=== PATIENT | male | born 1955 | race Caucasian/White ===

== ENCOUNTER → 2016-05-16 | Outpatient (CLI) | payer BC ==
[~2016-05-16] MED LIST: ATOR10TA88 PO; DOXY100C PO; LATA0.5S OPB; LOSA100T65 PO; NAPR220T40 PO; OXYC1TAB3 PO; PRED20TA PO
[2016-05-16 09:54] LABS: AST/SGOT 18 U/L (15-37); BLOOD UREA NITROGEN 16 mg/dl (7-18); BUN/CREATININE RATIO 17.2 (10-20); CALCIUM 8.7 mg/dl (8.5-10.1); CARBON DIOXIDE 24 mmol/L (21-32); CHLORIDE 106 mmol/L (98-107); CREATININE 0.93 mg/dl (0.60-1.40); GLUCOSE 96 mg/dl (70-99); POTASSIUM 4.2 mmol/L (3.5-5.1); SODIUM 139 mmol/L (136-145)
[2016-05-16 09:57] LABS: ALT/SGPT 40 U/L (12-78); CHOLESTEROL 155 mg/dl (0-200); CHOLESTEROL/HDL RATIO 3.1; HDL CHOLESTEROL 50 mg/dl; LDL CHOLESTEROL CALCULATED 85 mg/dl; TRIGLYCERIDES 100 mg/dl (0-150); VERY LOW DENSITY LIPOPROT CALC 20 mg/dl
== END | disposition home or self-care (01) ==
LOC: C.LAB1850 07:35
PROVIDERS: ATTEND Internal Medicine
DX: Z00.00 Encounter for general adult medical examination without abnormal findings (principal); E78.5 Hyperlipidemia, unspecified; I10 Essential (primary) hypertension; Z12.5 Encounter for screening for malignant neoplasm of prostate; E55.9 Vitamin D deficiency, unspecified

== ENCOUNTER 2016-08-17 11:20 | Emergency (ER) | payer BC ==
[~2016-08-17] VITALS: Ht 182.9 cm; Wt 112.0 kg
[2016-08-17 11:23] VITALS: TEMP 36.3; Ht 182.9 cm; Wt 112.0 kg
[2016-08-17] MEDS ORDERED: ATOR10TA82 PO (11:45)
[2016-08-17] MEDS ORDERED: LATA0.5S OPB (11:45)
[2016-08-17] MEDS ORDERED: LOSA100T65 PO (11:45)
[2016-08-17] MEDS ORDERED: NAPR220T40 PO (11:45)
--- NOTE | 2016-08-17 12:18 | EMERGENCY ROOM VISIT NOTE ---
History Report prepared by Misa: Rambo Williamson Under the Supervision of: Dr. Alf Cooper M.D. First contact with patient: 11:52 Chief Complaint: PAIN (GENERALIZED) Stated Complaint: ACHING JOINTS ALL OVER BODY History of Present Illness The patient is a 61 year old male who presents to the Emergency Room with complaints of persistent joint pain starting this morning. For the past few months, the patient has been having an ongoing inflammation in the right hip. He has intermittent pain radiation down the back of the right leg. He has been evaluated by his PCP and his chiropractor for the right hip issues. About a month ago, he had an x-ray of the right hip which showed age-related degeneration and arthritis. About a year ago, the patient had similar pain in the left hip which had resolved on its own. Recently, the left hip pain is starting to come back but it is not as severe as the pain in the right hip. He recently finished a tapering dose of steroids which had provided relief in the right hip pain. He woke up this morning with pain in all of the joints. He has worsening pain with transitioning from sitting to standing position and with movement of legs. He has been taking Aleve without relief. He reports a normal appetite and a normal fluid intake. He denies any recent tick bites, fevers, chills, headache, vision changes, chest pain, shortness of breath, urinary symptoms, diarrhea, weakness, rash, or any other complaints. He has a history of back issues but currently denies any back pain. He also has a history of Lyme 's disease but denies any similar symptoms today. He is a former smoker. Source of History: patient Onset: this morning Position: other (joints) Timing: other (persistent) Modifying Factors (Worsening): movement, other (transitioning from sitting to standing position) Modifying Factors (Relieving): other (Aleve without relief) Associated Symptoms: No fevers, No chills, No headache, No chest pain, No SOB, No diarrhea, No urinary symptoms, No weakness, No rash Review of Systems See HPI for pertinent positives & negatives. A total of 10 systems reviewed and were otherwise negative. Past Medical & Surgical Medical Problems: (1) Back pain (2) Lyme disease Surgical Problems: (1) H/O sinus surgery Family History FHx: cancer Hypertension Social History Smoking Status: Former Smoker Alcohol Use: occasionally Marital Status: Housing Status: lives with significant other Occupation Status: employed Current/Historical Medications Scheduled Atorvastatin (Lipitor), 10 MG PO QPM Doxycycline Hyclate (Vibramycin), 100 MG PO BID Latanoprost (Xalatan 0.005% Oph Sammie), 1 DROPS OPB HS Losartan Potassium (Cozaar), 100 MG PO DAILY Naproxen Sodium (Aleve), 440 MG PO Q12 Prednisone (Prednisone), 0 PO DAILY Scheduled PRN Oxycodone Immediate Rel Tab (Roxicodone Ir), 1-2 TAB PO Q4H PRN for Severe Pain Allergies Coded Allergies: No Known Allergies (Unverified , 08/17/16) Physical Exam Vital Signs Date Time Temp Pulse Resp B/P (MAP) Pulse Ox O2 Delivery O2 Flow Rate FiO2 08/17/16 13:30 77 20 129/78 98 Room Air 08/17/16 11:23 36.3 71 18 143/91 94 Room Air Physical Exam GENERAL: Patient is well appearing and in minimal distress. HEENT: No acute trauma, normocephalic atraumatic, mucous membranes moist, no nasal congestion, no scleral icterus. NECK: No stridor, no adenopathy, no meningismus, trachea is midline. LUNGS: No dyspnea. Clear to auscultation and equal bilaterally. No wheeze, no rhonchi. HEART: Regular rate and rhythm. No murmurs, rubs, gallops appreciated. ABDOMEN: Soft, nontender, bowel sounds positive, no masses appreciated, no peritonitis. BACK: No midline tenderness, no CVA tenderness EXTREMITIES: Normal motion all extremities, no cyanosis, no edema. NEUROLOGIC: Alert and oriented, no acute motor or sensory deficits, no focal weakness, cranial nerves grossly intact. SKIN: No rash, no jaundice, no diaphoresis. Medical Decision & Procedures Laboratory Results 08/17/16 12:15 Red Blood Count 4.51, Mean Corpuscular Volume 91.4, Mean Corpuscular Hemoglobin 30.4, Mean Corpuscular Hemoglobin Concent 33.3, Mean Platelet Volume 9.6, Neutrophils (%) (Auto) 77.4, Lymphocytes (%) (Auto) 7.5, Monocytes (%) (Auto) 13.9, Eosinophils (%) (Auto) 0.7, Basophils (%) (Auto) 0.1, Neutrophils # (Auto ) 11.06, Lymphocytes # (Auto) 1.07, Monocytes # (Auto) 1.99, Eosinophils # (Auto ) 0.10, Basophils # (Auto) 0.02 08/17/16 12:15 Test 08/17/16 12:15 White Blood Count 14.30 K/uL (4.8-10.8) Red Blood Count 4.51 M/uL (4.7-6.1) Hemoglobin 13.7 g/dL (14.0-18.0) Hematocrit 41.2 % (42-52) Mean Corpuscular Volume 91.4 fL (80-100) Mean Corpuscular Hemoglobin 30.4 pg (25-34) Mean Corpuscular Hemoglobin Concent 33.3 g/dl (32-36) Platelet Count 290 K/uL (130-400) Mean Platelet Volume 9.6 fL (7.4-10.4) Neutrophils (%) (Auto) 77.4 % Lymphocytes (%) (Auto) 7.5 % Monocytes (%) (Auto) 13.9 % Eosinophils (%) (Auto) 0.7 % Basophils (%) (Auto) 0.1 % Neutrophils # (Auto) 11.06 K/uL (1.4-6.5) Lymphocytes # (Auto) 1.07 K/uL (1.2-3.4) Monocytes # (Auto) 1.99 K/uL (0.11-0.59) Eosinophils # (Auto) 0.10 K/uL (0-0.5) Basophils # (Auto) 0.02 K/uL (0-0.2) RDW Standard Deviation 46.0 fL (36.4-46.3) RDW Coefficient of Variation 13.8 % (11.5-14.5) Immature Granulocyte % (Auto) 0.4 % Immature Granulocyte # (Auto) 0.06 K/uL (0.00-0.02) Erythrocyte Sedimentation Rate 46 mm/hr (0-14) Anion Gap 8.0 mmol/L (3-11) Est Creatinine Clear Calc Drug Dose 141.0 ml/min Estimated GFR () 117.5 Estimated GFR (Non- 101.4 BUN/Creatinine Ratio 21.9 (10-20) Calcium Level 8.1 mg/dl (8.5-10.1) C-Reactive Protein 7.49 mg/dl (0-0.29) Lyme Disease IgG Antibody POS (NEG) Laboratory results as reviewed by me. Medications Administered Medications (Trade) Dose Ordered Sig/Dionne Route Start Time Stop Time Status Last Admin Dose Admin Ketorolac Tromethamine (Toradol Inj) 60 mg NOW STAT IM 08/17/16 12:54 08/17/16 12:55 DC 08/17/16 13:04 60 MG Oxycodone HCl (Roxicodone Immediate Rel Tab) 5 mg NOW STAT PO 08/17/16 13:48 08/17/16 13:49 DC 08/17/16 14:02 5 MG Prednisone (PredniSONE TAB) 60 mg NOW STAT PO 08/17/16 13:48 08/17/16 13:49 DC 08/17/16 14:02 60 MG Doxycycline Hyclate (Vibramycin Cap) 100 mg ONE ONCE PO 08/17/16 14:00 08/17/16 14:02 DC 08/17/16 14:02 100 MG ED Course 1152: The patient was evaluated in room C03. A complete history and physical exam was performed. 1254: Toradol Inj 60 mg IM 1305: I reevaluated the patient. 1348: Prednisone 60 mg PO, Oxycodone HCl 5 mg PO 1400: Vibramycin Cap 100 mg PO. Reevaluated the patient who is resting comfortably. Discussed results and discharge instructions: He verbalized understanding and agreement. The patient is ready for discharge. Medical Decision Differential diagnosis includes but is not limited to polyarthralgia, tick borne illness, sepsis, septic joint, vasculitis. Blood pressure screening: Patient was found to have an elevated blood pressure and was referred to their primary doctor for recheck and further treatment. Medication Reconciliation: I attest that I have personally reviewed the patient 's current medication list. 61 yr old male arrives with polyarthralgias with primary right hip hurting over last few weeks/months. History of Lyme several years ago with rash at that time. He is have no cardiac nor neurologic symptoms. ESR/CRP quite elevated consistent with inflammatory process. No fever and WBC mild elevation likely recent steroid usage. Given Toradol with vast improvement in symptoms. Able to ambulate on right hip. IgG Lyme positive with IgM negative, thus either chronic vs sub acute lyme infection. Suspect polyarthralgia are secondary to Lyme, however other rheum disease clearly of concern. Will start prolonged Pred taper with Doxy x 3 weeks. Stressed PCP follow up and discussion of Rheum referral. Stable, not septic and clearly feeling much better with above. Will give limited Rx narcotics given discomfort and wish to avoid too much NSAIDs with prednisone usage as well. Discussed at length risks of stomach issues with all these meds, along with other issues with meds. Aware RTED if worsening or other concerns. Stable and feeling well at discharge. Impression Primary Impression: Polyarthralgia Additional Impression: Subacute Lyme Disease Scribe Attestation The scribe's documentation has been prepared under my direction and personally reviewed by me in its entirety. I confirm that the note above accurately reflects all work, treatment, procedures, and medical decision making performed by me. Departure Information Dispostion Home / Self-Care Prescriptions Doxycycline Hyclate (VIBRAMYCIN) 100 Mg Cap 100 MG PO BID for 21 Days, #42 CAP Prov: Alf Cooper M.D. 08/17/16 Oxycodone Immediate Rel Tab (ROXICODONE IR) 5 Mg Tab 1-2 TAB PO Q4H Y for Severe Pain, #20 TAB Prov: Alf Cooper M.D. 08/17/16 Prednisone (Prednisone) 20 Mg Tab 0 PO DAILY, #20 TAB 3 DAILY FOR 3 DAYS, THEN 2 DAILY FOR 3 DAYS, THEN 1 DAILY FOR 3 DAYS, THEN 1/2 TAB FOR 3 DAYS. Prov: Alf Cooper M.D. 08/17/16 Referrals Pro,Tarik Ga M.D. (PCP) Forms HOME CARE DOCUMENTATION FORM, IMPORTANT VISIT INFORMATION, WORK / SCHOOL INSTRUCTIONS Patient Instructions My [facility] Additional Instructions You have received a narcotic pain medication prescription. These medications may cause drowsiness and should not be used with other sedative medications. Do not drive, drink alcohol, perform dangerous activities, nor make important decisions after taking these medications. custodial use or inappropriate use may lead to addiction. It is important you follow up with your primary care provider as soon as possible. Discuss with your primary provider whether you should be seen by Rheumatology. Return immediately if headache, stroke like symptoms, weakness, passing out, chest pain or other concerns. Problem Qualifiers
[2016-08-17 12:25] LABS: BASO % 0.1 %; BASO ABS # 0.02 K/uL (0-0.2); COMPLETE YES; EOS % 0.7 %; HEMATOCRIT 41.2 % (42-52); IG% 0.4 %; LYMPH % 7.5 %; LYMPH ABS # 1.07 K/uL (1.2-3.4); MEAN CELL VOLUME 91.4 fL (80-100); MEAN CORPUSCULAR HEMOGLOBIN 30.4 pg (25-34); MEAN CORPUSCULAR HGB CONC 33.3 g/dl (32-36); MEAN PLATELET VOLUME 9.6 fL (7.4-10.4); MONO % 13.9 %; NEUT % 77.4 %; PLATELET COUNT 290 K/uL (130-400); RED BLOOD COUNT 4.51 M/uL (4.7-6.1)
[2016-08-17 12:49] LABS: BUN/CREATININE RATIO 21.9 (10-20); C-REACTIVE PROTEIN 7.49 mg/dl (0-0.29); CALCIUM 8.1 mg/dl (8.5-10.1); CREATININE 0.72 mg/dl (0.60-1.40); POTASSIUM 3.9 mmol/L (3.5-5.1)
[2016-08-17] MEDS ORDERED: KETOROLAC TROMETHAMINE 60 MG/2 ML VIAL IM STA (12:54)
[2016-08-17 13:24] LABS: LYME DISEASE AB IGM NEG (NEG)
[2016-08-17 13:29] LABS: LYME DISEASE AB IGG POS (NEG)
[2016-08-17 13:30] VITALS: BP 129/78; PULSE 77; O2SAT 98
[2016-08-17] MEDS ORDERED: OXYCODONE HCL IR 5 MG TAB (IMMEDIATE RELEASE) PO STA (13:48)
[2016-08-17] MEDS ORDERED: PRED20TA PO (13:52)
[2016-08-17] MEDS ORDERED: DOXY100C PO (13:52)
[2016-08-17] MEDS ORDERED: OXYC1TAB3 PO (13:52)
[2016-08-17] MEDS ORDERED: DOXYCYCLINE HYCLATE 100 MG CAP PO ONE (14:00)
[2016-08-22 11:05] LABS: 18KDIGG BAND NONREACTIVE (NONREACTIVE); 23KDIGG BAND REACTIVE (NONREACTIVE); 23KDIGM BAND NONREACTIVE (NONREACTIVE); 28KDIGG BAND NONREACTIVE (NONREACTIVE); 30KDIGG BAND NONREACTIVE (NONREACTIVE); 39KDIGG BAND NONREACTIVE (NONREACTIVE); 39KDIGM BAND NONREACTIVE (NONREACTIVE); 41KDIGG BAND REACTIVE (NONREACTIVE); 41KDIGM BAND NONREACTIVE (NONREACTIVE); 45KDIGG BAND NONREACTIVE (NONREACTIVE); 58KDIGG BAND REACTIVE (NONREACTIVE); 66KDIGG BAND NONREACTIVE (NONREACTIVE); 93KDIGG BAND NONREACTIVE (NONREACTIVE)
[2016-08-23 01:39] LABS: EHRLICHIA CHAFF IGG AB <1:64 (<1:64); EHRLICHIA CHAFF IGM AB <1:20 (<1:20)
== END 2016-08-17 14:00 | disposition home or self-care (01) ==
LOC: C.EDB 11:22 → C.EDC 14:00
DX: M25.50 Pain in unspecified joint (principal); A69.20 Lyme disease, unspecified; Z82.49 Family history of ischemic heart disease and other diseases of the circulatory system; Z87.891 Personal history of nicotine dependence

== ENCOUNTER → 2016-08-25 | Outpatient (CLI) | payer BC ==
[~2016-08-25] MED LIST changes: +ATOR10TA82 PO; -ATOR10TA88 PO
[2016-08-25 13:45] LABS: BASO % 0.1 %; BASO ABS # 0.01 K/uL (0-0.2); COMPLETE YES; EOS % 0.1 %; HEMATOCRIT 40.7 % (42-52); IG% 0.8 %; LYMPH % 4.4 %; MEAN CELL VOLUME 91.3 fL (80-100); MEAN CORPUSCULAR HEMOGLOBIN 30.7 pg (25-34); MEAN CORPUSCULAR HGB CONC 33.7 g/dl (32-36); MEAN PLATELET VOLUME 9.6 fL (7.4-10.4); MONO % 9.8 %; NEUT % 84.8 %; PLATELET COUNT 303 K/uL (130-400); RED BLOOD COUNT 4.46 M/uL (4.7-6.1); WHITE BLOOD COUNT 15.78 K/uL (4.8-10.8)
== END | disposition home or self-care (01) ==
LOC: C.LAB 13:08
PROVIDERS: ATTEND Internal Medicine
DX: A69.20 Lyme disease, unspecified (principal)

== ENCOUNTER → 2016-09-11 | Outpatient (CLI) | payer BC ==
[~2016-09-11] MED LIST changes: -ATOR10TA82 PO; +ATOR10TA88 PO; -DOXY100C PO
--- NOTE | 2016-09-11 11:58 | DIAGNOSTIC IMAGING REPORT ---
RIGHT HAND MIN 3 VIEWS ROUTINE CLINICAL HISTORY: M25.539 Wrist painR20.8 Numbness of left handE83.51 Hypocalcemia Right COMPARISON: None. DISCUSSION: Mild osteopenia and periarticular distribution throughout. No significant marginal erosions. No soft tissue calcifications. Joint spaces are well-preserved. There is no evidence for soft tissue swelling. IMPRESSION: Potential early rheumatoid change. Electronically signed by: Villa Esteves M.D. 09/11/2016 11:57 AM Dictated Date/Time: 09/11/2016 11:56 AM
--- NOTE | 2016-09-11 12:02 | DIAGNOSTIC IMAGING REPORT ---
LEFT HAND MIN 3 VIEWS ROUTINE CLINICAL HISTORY: M25.539 Wrist painR20.8 Numbness of left handE83.51 Hypocalcemia COMPARISON: None. DISCUSSION: No acute fractures are visualized. There is mild periarticular osteopenia. There are no erosive or destructive changes. There is a tiny metallic foreign body within the dorsal skin, at the level of the second and third metacarpal interspace. IMPRESSION: 1. No acute fractures 2. Mild particular osteopenia 3. No evidence of erosive disease 4. Tiny metallic foreign body within the dorsal skin. Electronically signed by: Jah Zhou M.D. 09/11/2016 12:01 PM Dictated Date/Time: 09/11/2016 11:59 AM
== END | disposition home or self-care (01) ==
LOC: C.RAD1850 11:33
PROVIDERS: ATTEND Internal Medicine Rheumatology
DX: E83.51 Hypocalcemia (principal); M25.539 Pain in unspecified wrist; R20.8 Other disturbances of skin sensation

== ENCOUNTER → 2016-09-18 | Outpatient (CLI) | payer BC ==
--- NOTE | 2016-09-18 08:50 | DIAGNOSTIC IMAGING REPORT ---
ORBIT RADIOGRAPHS 3 VIEWS HISTORY: Pre-MRI pre-MRI screening. COMPARISON: None. FINDINGS: There are no radiopaque foreign bodies identified within the orbits. IMPRESSION: No radiopaque foreign bodies identified within the orbits. Electronically signed by: Villa Esteves M.D. 09/18/2016 8:49 AM Dictated Date/Time: 09/18/2016 8:49 AM
--- NOTE | 2016-09-18 10:00 | DIAGNOSTIC IMAGING REPORT ---
MRI OF THE SACROILIAC JOINTS WITHOUT IV CONTRAST CLINICAL HISTORY: Lumbar radiculopathy. Sciatica. COMPARISON STUDY: Pelvic radiograph dated 02/08/2015. TECHNIQUE: MRI of the sacrum and sacroiliac joints is performed utilizing various T1 and T2-weighted sequences in the axial, sagittal, and coronal planes. IV contrast was not administered for this examination. FINDINGS: There is no MRI evidence of fracture or marrow replacement process in the sacrum. The sacroiliac joints are preserved. Mild sclerotic degenerative change is seen along the superior aspect of the sacroiliac joints bilaterally, and inferiorly within the medial left ilium. There is mild marrow edema identified within the medial left ilium at this site. No additional foci of marrow edema are suggested. There is no fluid seen within the joints and no erosive change is suggested. Facet arthropathy causes neural foraminal stenosis in the lower lumbar spine at L4-L5 and L5-S1. This is only partially visualized. There is no evidence of large disc herniation at these levels. The remainder of the visualized bony pelvis appears intact. The sacral nerve roots are normal as imaged. No presacral abnormality is seen. A large diverticulum of the sigmoid colon is incidentally noted on axial image #12. Partially imaged pelvic viscera is otherwise grossly normal. IMPRESSION: 1. Mild sclerotic degenerative change is noted in the sacroiliac joints as above. 2. No acute bony abnormality or destructive process is seen. 3. Lumbosacral spondylosis is partially imaged. Electronically signed by: Indio Connelly M.D. 09/18/2016 9:59 AM Dictated Date/Time: 09/18/2016 9:49 AM
== END | disposition home or self-care (01) ==
LOC: C.MRI 08:25
PROVIDERS: ATTEND Internal Medicine Rheumatology
DX: M54.16 Radiculopathy, lumbar region (principal); Z01.818 Encounter for other preprocedural examination; M51.17 Intervertebral disc disorders with radiculopathy, lumbosacral region

== ENCOUNTER → 2017-02-04 | Outpatient (CLI) | payer BC ==
[~2017-02-04] MED LIST changes: +ATOR10TA82 PO; -ATOR10TA88 PO
== END | disposition home or self-care (01) ==
LOC: C.MAMM 07:56
PROVIDERS: ATTEND Internal Medicine Rheumatology
DX: M35.3 Polymyalgia rheumatica (principal)

== ENCOUNTER → 2017-06-18 | Day surgery (SDC) | payer BC, OTHER ==
[2017-06-12 11:58] VITALS: Ht 182.9 cm; Wt 92.7 kg
[~2017-06-18] VITALS: Ht 182.9 cm; Wt 92.7 kg
[~2017-06-18] MED LIST changes: +CHOL2000 PO; +MAGN400T6 PO; +METH10TA4 PO; -OXYC1TAB3 PO; +PRED-301 PO; -PRED20TA PO; +SODIUM CHLORIDE 0.9% 500ML 500 ML IV ONE
--- NOTE | 2017-06-18 12:30 | Endo History and Physical ---
History & Physical Date of Service: Jun 18, 2017. Chief Complaint: screening Referring Physician: Dr. Tarik Davila History of Present Illness 62 yo CM who presents for screening colonoscopy. Past Surgical History Hx Cardiac Surgery: No Hx Internal Defibrillator: No Hx Pacemaker: No Hx Abdominal Surgery: No Hx of Implantable Prosthesis: No Hx Post-Op Nausea and Vomiting: No Hx Cancer Surgery: No Hx Thoracic Surgery: No Hx Orthopedic: No Hx Urinary Tract Surgery: No Family History None Social History Smoking Status: Former Smoker Hx Substance Use: No Hx Alcohol Use: Yes (DAILY 1-3 BEER) Allergies Coded Allergies: No Known Allergies (Verified , 06/18/17) Current Medications Reported Home Medications Medications Dose Route/Sig Max Daily Dose Days Date Category Dose Instructions Mag-Ox (Magnesium Oxide) 400 Mg Tab 500 Mg PO DAILY 06/18/17 Reported Vitamin D3 (Cholecalciferol) 2,000 Unit Cap 1 Cap PO DAILY 30 06/18/17 Reported unsure of dose Ritalin (Methylphenidate HCl) 10 Mg Tab 36 Mg PO QAM 06/12/17 Reported Prednisone 5 Mg Tab 15 Mg PO QAM 06/12/17 Reported Aleve (Naproxen Sodium) 220 Mg Tab 440 Mg PO QAM 08/17/16 Reported Lipitor (Atorvastatin Calcium) 10 Mg Tab 10 Mg PO QPM 08/17/16 Reported Xalatan 0.005% Oph Sammie (Latanoprost) 0.005 % Sammie 1 Drops OPB HS 08/17/16 Reported Cozaar (Losartan Potassium) 100 Mg Tab 100 Mg PO HS 08/17/16 Reported Vital Signs Weight (Kilograms): 92.73 Height (Feet): 6 Height (Inches): 0 Date Time Temp Pulse Resp B/P (MAP) Pulse Ox O2 Delivery O2 Flow Rate FiO2 06/18/17 12:22 36.7 78 18 143/70 (94) 95 Room Air Physical Exam General Appearance: WD/WN, no apparent distress Respiratory/Chest: Auscultation: breath sounds normal Cardiovascular: Heart Auscultation: RRR Abdomen: Bowel Sounds: normal Inspection & Palpation: soft, non-distended, no tenderness, guarding & rebound Assessment and Plan Assessment: 62 yo CM who presents for screening colonoscopy. Plan: Proceed with colonoscopy.
--- NOTE | 2017-06-18 13:25 | GI REPORT ---
Procedure Date: 06/18/2017 12:37 PM Procedure: Colonoscopy Indications: Screening for colorectal malignant neoplasm Medicines: Monitored Anesthesia Care Complications: No immediate complications. Estimated Blood Loss: Estimated blood loss: none. Procedure: Pre-Anesthesia Assessment: - Prior to the procedure, a History and Physical was performed, and patient medications and allergies were reviewed. The patient's tolerance of previous anesthesia was also reviewed. The risks and benefits of the procedure and the sedation options and risks were discussed with the patient. All questions were answered, and informed consent was obtained. Prior Anticoagulants: The patient has taken no previous anticoagulant or antiplatelet agents. ASA Grade Assessment: II - A patient with mild systemic disease. After reviewing the risks and benefits, the patient was deemed in satisfactory condition to undergo the procedure. After I obtained informed consent, the scope was passed under direct vision. Throughout the procedure, the patient's blood pressure, pulse, and oxygen saturations were monitored continuously. The On-site loaner was introduced through the anus and advanced to the terminal ileum. The colonoscopy was performed without difficulty. The patient tolerated the procedure well. The quality of the bowel preparation was good. The terminal ileum, ileocecal valve, appendiceal orifice, and rectum were photographed. Findings: The perianal and digital rectal examinations were normal. Three sessile polyps were found in the ascending colon. The polyps were 4 to 6 mm in size. These polyps were removed with a hot snare. Resection and retrieval were complete. Multiple small-mouthed diverticula were found in the sigmoid colon. Non-bleeding internal hemorrhoids were found during retroflexion. The hemorrhoids were small. Impression: - Three 4 to 6 mm polyps in the ascending colon, removed with a hot snare. Resected and retrieved. - Diverticulosis in the sigmoid colon. - Non-bleeding internal hemorrhoids. Recommendation: - Resume previous diet. - Continue present medications. - Repeat colonoscopy for surveillance based on pathology results. - Return to primary care physician as previously scheduled. Flaquito Rothman, DO 06/18/2017 1:25:35 PM This report has been signed electronically. Note Initiated On: 06/18/2017 12:37 PM I attest to the content of the Intraoperative Record and orders documented therein, exceptions below
--- NOTE | 2017-06-18 13:26 | Discharge Instructions ---
Endoscopy Patient Instructions Date / Procedure(s) Performed Jun 18, 2017. Colonoscopy Allergy Information Coded Allergies: No Known Allergies (Verified , 06/18/17) Discharge Date / Findings Jun 18, 2017. Colon polyps Diverticulosis Internal hemorrhoids Medication Instructions OK to resume all medications today as prescribed Reported Home Medications Medications Dose Route/Sig Max Daily Dose Days Date Category Dose Instructions Mag-Ox (Magnesium Oxide) 400 Mg Tab 500 Mg PO DAILY 06/18/17 Reported Vitamin D3 (Cholecalciferol) 2,000 Unit Cap 1 Cap PO DAILY 30 06/18/17 Reported unsure of dose Ritalin (Methylphenidate HCl) 10 Mg Tab 36 Mg PO QAM 06/12/17 Reported Prednisone 5 Mg Tab 15 Mg PO QAM 06/12/17 Reported Aleve (Naproxen Sodium) 220 Mg Tab 440 Mg PO QAM 08/17/16 Reported Lipitor (Atorvastatin Calcium) 10 Mg Tab 10 Mg PO QPM 08/17/16 Reported Xalatan 0.005% Oph Sammie (Latanoprost) 0.005 % Sammie 1 Drops OPB HS 08/17/16 Reported Cozaar (Losartan Potassium) 100 Mg Tab 100 Mg PO HS 08/17/16 Reported Provider Instructions Activity Restrictions - No exercising or heavy lifting for 24 hours. - Do not drink alcohol the day of the procedure. - Do not drive a car or operate machinery until the day after the procedure. - Do not make any important decisions or sign important papers in 24 hours after the procedure. Following Day: - Return to full activity which may include returning to work/school. Diet Start your diet with liquids and light foods (jello, soup, juice, toast). Then eat your usual diet if not nauseated. Treatment For Common After Affects For mild abdominal pain, bloating, or excessive gas: - Rest - Eat lightly - Lie on right side Follow-Up Information Follow-up with Dr. Tarik Davila as scheduled Anesthesia Information What You Should Know You have had a procedure that required some medicine to reduce anxiety and discomfort. This treatment is called moderate sedation. After receiving the treatment, you may be sleepy, but you will be able to breathe on your own. The effects of the treatment may last for several hours. Follow these instructions along with Activity/Diet recommendations noted above: * Do NOT do anything where dizziness or clumsiness would be dangerous. * Rest quietly at home today, then you can be up and about tomorrow. * Have a responsible person stay with you the rest of today. * You may have had an I.V. today. If so, you may take the dressing off later today. Recommendations Call your doctor if: * Trouble breathing * Continuous vomiting for more than 24 hours * Temperature above 101 degrees * Severe abdominal pain or bloating * Pain not relieved by pain medicine ordered * There is increased drainage or redness from any incision * A large amount of rectal bleeding greater than 2-3 tablespoons. (If you had a polyp/s removed or have hemorrhoids, a small amount of blood - from the rectum is to be expected.) * You have any unanswered questions or concerns. IN THE EVENT OF A SERIOUS EMERGENCY, GO TO THE NEAREST EMERGENCY ROOM Your discharge instructions were prepared by provider Flaquito Rothman. Patient Instructions Signature Page Reilly Cheng Patient (or Guardian) Signature/Date: I have read and understand the instructions given to me by my caregivers. Caregiver/RN/Doctor Signature/Date: The above-named patient and/or guardian has received patient instructions on this date. + Original Patient Signature Page (only) stays with chart. Please make copy for patient.
--- NOTE | 2017-06-18 13:29 | Anesthesiology Progress Note ---
Anesthesia Post Op Note Date & Time Jun 18, 2017 at 13:29 Vital Signs Pain Intensity: 0 Vital Signs Past 12 Hours Date Time Temp Pulse Resp B/P (MAP) Pulse Ox O2 Delivery O2 Flow Rate FiO2 06/18/17 12:22 36.7 78 18 143/70 (94) 95 Room Air Notes Mental Status: alert / awake / arousable, participated in evaluation Pt Amnestic to Procedure: Yes Nausea / Vomiting: adequately controlled Pain: adequately controlled Airway Patency, RR, SpO2: stable & adequate BP & HR: stable & adequate Hydration State: stable & adequate Anesthetic Complications: no major complications apparent
[2017-06-18 13:53] VITALS: BP 143/89; PULSE 64; O2SAT 94
== END | disposition home or self-care (01) ==
LOC: C.GI 11:50
PROVIDERS: ATTEND Internal Medicine
DX: Z12.11 Encounter for screening for malignant neoplasm of colon (principal); D12.2 Benign neoplasm of ascending colon; K57.30 Diverticulosis of large intestine without perforation or abscess without bleeding; K64.8 Other hemorrhoids; I10 Essential (primary) hypertension; Z87.891 Personal history of nicotine dependence; Z79.899 Other long term (current) drug therapy; Z98.890 Other specified postprocedural states

== ENCOUNTER → 2017-10-27 | Outpatient (CLI) | payer OTHER ==
[~2017-10-27] MED LIST changes: -SODIUM CHLORIDE 0.9% 500ML 500 ML IV ONE
--- NOTE | 2017-10-27 14:58 | DIAGNOSTIC IMAGING REPORT ---
KUB HISTORY: R14.3 [id number] COMPARISON: None. FINDINGS: The bowel gas pattern is non-obstructive. There is no organomegaly. Probable phleboliths are noted about the pelvis. No renal calculi. No ureteral calculi. No pneumoperitoneum or pneumatosis. No fracture. Mild degenerative changes about the bilateral femoral acetabular joints. Intervertebral disc space narrowing with facet arthropathy at L4-L5 and L5-S1. IMPRESSION: Nonobstructive bowel gas pattern. Electronically signed by: Moses Hylton M.D. 10/27/2017 2:57 PM Dictated Date/Time: 10/27/2017 2:55 PM
== END | disposition home or self-care (01) ==
LOC: C.RAD1850 14:37
PROVIDERS: ATTEND Internal Medicine
DX: R14.3 Flatulence (principal)